=== PATIENT | female | born 1980 | race Caucasian/White ===

== ENCOUNTER 2016-11-08 05:29 | Inpatient (IN) | payer OTHER ==
--- NOTE | 2016-11-05 15:39 | MH ---
cc: KULDEEP COLINDRES M.D. DATE OF ADMISSION: 11/08/2016 DATE OF : 1980 REASON FOR ADMISSION Scheduled elective section for breech presentation on November 08, 2016. HISTORY OF PRESENT ILLNESS The patient is a 36-year-old female whose last menstrual period was February 09, 2016, estimated date of confinement November 15, 2016 confirmed by serial ultrasounds in the first trimester. The patient has been followed routinely and was diagnosed with lewis breech presentation and elected for section electively. PAST MEDICAL HISTORY 1. Chronic hypertension, but she has been normotensive off medication during the whole . 2. History of gastroesophageal reflux. 3. Chronic allergic rhinitis. 4. Advanced maternal age. The patient's course was remarkable for an abnormal one-hour glucose tolerance test which was confirmed normal by a three-hour GTT. The patient's blood type is O+. She is group-B strep negative. MEDICATIONS 1. vitamins. 2. Flonase p.r.n. ALLERGIES No known drug allergies. FAMILY HISTORY Noncontributory. PHYSICAL EXAMINATION GENERAL: The patient is a well-appearing, well-nourished female in no acute distress. VITAL SIGNS: Stable. Blood pressure 124/86. heart tones in the 140s. HEENT: No adenopathy or thyromegaly. LUNGS: Clear in all joshi. CARDIAC: Regular rhythm without murmur, rub or gallop. ABDOMEN: Gravid, full-term, breech presentation palpated, confirmed by ultrasound. EXTREMITIES: Symmetrical. Full range of motion. There is no cyanosis, clubbing or edema. NEUROLOGIC: Grossly intact, nonfocal. ASSESSMENT The patient is 39 weeks intrauterine gestation with lewis breech presentation for elective section. Group-B strep status positive. Advanced maternal age with normal cell-free DNA testing. MD LINDA Hanna/ROSA /1:26 PM /3:30 PM
[~2016-11-08] VITALS: Ht 165.1 cm; Wt 106.1 kg
[~2016-11-08 05:29] MED LIST: Z.0.NO CURRENT MEDS
[2016-11-08 06:00] VITALS: BP 141/95; PULSE 96; RESP 18; TEMP 98.2
[2016-11-08] MEDS ORDERED: CITRIC ACID-SODIUM CITRATE LIQ 30 ML UDC PO SCH (06:00)
[2016-11-08] MEDS ORDERED: ceFAZolin 2 GM PREMIX 50 ML IV SCH (06:00)
[2016-11-08] MEDS ORDERED: LACTATED RINGER'S 1000 ML IV ONE (06:00)
[2016-11-08 06:06] LABS: AUTOMATED NEUTROPHIL # 7.6 TH/MM3 (1.8-7.7); BASOPHIL # 0.1 TH/MM3 (0-0.2); BASOPHIL % 0.8 % (0.0-2.0); EOSINOPHIL # 0.1 TH/MM3 (0-0.4); EOSINOPHIL % 1.1 % (0.0-4.0); HEMATOCRIT 36.4 % (35.0-46.0); HEMO FLAGS DIFF FINAL; LYMPH % 31.7 % (9.0-44.0); MEAN CELL VOLUME 79.8 FL (80.0-100.0); MEAN CORPUSCULAR HEMOGLOBIN 27.2 PG (27.0-34.0); MEAN CORPUSCULAR HGB CONC 34.1 % (32.0-36.0); MONO % 5.5 % (0.0-8.0); NEUT % 60.9 % (16.0-70.0); PLATELET COUNT 128 TH/MM3 (150-450); RED BLOOD COUNT 4.56 MIL/MM3 (4.00-5.30); RED CELL DISTRIBUTION WIDTH 13.7 % (11.6-17.2); WHITE BLOOD COUNT 12.5 TH/MM3 (4.0-11.0)
[2016-11-08] MEDS ORDERED: PRENCAP10 PO (06:12)
[2016-11-08] MEDS ORDERED: CHOL1CAP14 PO (06:13)
[2016-11-08] MEDS ORDERED: PANT20 PO (06:13)
[2016-11-08] MEDS ORDERED: XYZA5TAB2 PO (06:14)
[2016-11-08] MEDS ORDERED: [UNRECOGNIZED DRUG - CODE] TOPICAL (06:15)
[2016-11-08 06:54] LABS: BACTERIA, URINE MOD /hpf; BLOOD, URINE NEG (NEG); GLUCOSE,URINE TRACE mg/dL (NEG); KETONE, URINE 10 mg/dL (NEG); MUCUS URINE FEW /lpf (OCC); NITRITE,URINE NEG (NEG); SQUAMOUS EPITHELIAL CELL URINE 22 /hpf (0-5); TRANSITIONAL EPI CELLS, URINE <1 /hpf; URINE COLOR YELLOW (YELLW/STRAW)
[2016-11-08 06:55] LABS: COMMENT (UR) CULTURE INDICATED; CULTURE IF INDICATED CULTURE INDICATED
[2016-11-08 06:58] VITALS: BP 148/100; PULSE 93
[2016-11-08] MEDS ORDERED: OXYTOCIN 10 UNIT/ML AMP ONE (07:14)
[2016-11-08] MEDS ORDERED: ONDANSETRON HCL 4 MG/2 ML VIAL IV PUSH ONE (07:45)
--- NOTE | 2016-11-08 08:22 | PD.OB.DELI ---
Procedure Note Section Procedure Performed by Osiel Garcia Procedure: Primary Low Transverse Sec Indication for delivery: malposition Informed consent obtained: For anesthesia, For procedure Confirmed correct: Patient, Procedure, Site, Time-out taken Anesthesia: Spinal Medication prior to procedure: As documented in eMAR Monitoring during procedure: Blood pressure monitoring, monitor worker, doppler, Pulse oximetry Urinary catheter: Inserted using sterile technique, To dependent drainage Sterile preparation: Duraprep, In usual fashion Position: Supine with wedge to right side, Supine with safety belt applied Operative Features Skin Incision: Pfannenstiel Uterine Incision: Low transverse w/knife / scissors Membranes Ruptured: Artificially Presentation: Breech Delivery of infant: Uneventful Infant: Female One Minute : 6 Five Minute : 9 Weight: 7/11 Status of : Viable, Cord blood, Umbilical cord, Nursery present Placenta delivered: Intact Medications: Antibiotics, Oxytocin Estimated blood loss: 650cc Procedure tolerated: Well Maternal Condition: Stable Condition: Stable Osiel Garcia MD November 08, 2016 08:22
--- NOTE | 2016-11-08 08:25 | HHI.DS ---
Admission Date November 08, 2016 at 05:29 Admitting Diagnosis Diagnosis: : Female Pt Condition on Discharge: Good Discharge Disposition: Discharge Home Discharge Instructions Diet Instructions: As Tolerated, No Restrictions Activities You Can Perform: Shower Only-No Bath Activities to Avoid: Prolonged Standing, Strenuous Activity, Driving, Sexual Activity Osiel Garcia MD November 08, 2016 08:25
[2016-11-08] MEDS ORDERED: MORPHINE SULFATE PF 5 MG/10 ML VIAL ONE (08:27)
[2016-11-08] MEDS ORDERED: ACETAMINOPHEN 1000 MG/100 ML VIAL IV ONE ×2 (08:30→08:58)
[2016-11-08] MEDS ORDERED: ONDANSETRON HCL 4 MG/2 ML VIAL IV PUSH PRN (08:30)
[2016-11-08] MEDS ORDERED: KETOROLAC TROMETHAMINE 60 MG/2 ML (IM) VIAL IM PRN (08:30)
[2016-11-08] MEDS ORDERED: OXYTOCIN 30 UNITS-500ML PREMIX 500 ML IV ONE (08:30)
[2016-11-08] MEDS ORDERED: SODIUM CHLORIDE 0.9% FLUSH 10 ML FLUSH IV FLUSH PRN (08:30)
[2016-11-08] MEDS ORDERED: SIMETHICONE 80 MG CHEWABLE TAB PO PRN (08:30)
--- NOTE | 2016-11-08 08:45 | MP ---
cc: OSIEL COLINDRES M.D. DATE OF SURGERY 11/08/2016 PREOPERATIVE DIAGNOSIS Term intrauterine , breech presentation. PROCEDURE Primary low transverse section, breech extraction. Delivery of female . POSTOPERATIVE DIAGNOSIS Term intrauterine , breech presentation. SURGEON MD Jose ANESTHESIA Spinal. ESTIMATED BLOOD LOSS 650 cc. DRAINS Awad to gravity. OPERATIVE FINDINGS Adryan breech presentation right sacrum transverse. The baby weighed 7 pounds, 11 ounces. Apgars were 6 at one minute and 9 at five minutes. INDICATIONS FOR PROCEDURE Patient with persistent breech presentation, elected for section. The patient received Ancef 2 grams prophylactically. She was Group B strep negative. PROCEDURE DESCRIPTION The patient was taken to the operating room in stable condition, underwent spinal anesthetic with excellent results. She was prepped and draped. A Awad was inserted by sterile technique. She had sequentials placed on the lower extremities for VTE prophylaxis. After she was prepped and draped, time-out was conducted, agreed to by all present in the room. The patient had excellent pain management. A Pfannenstiel incision was utilized, taking the incision through the skin and the subcutaneous layer down to the fascia which was identified cleanly and then opened laterally by sharp dissection, it away from the rectus muscle. The rectus muscle was in the midline sharply identifying the peritoneum, opening the peritoneum carefully and then extending the incision. Bladder blade was placed over the pubic symphysis. Transverse incision was made in the lower uterine segment, pushing the peritoneum away and under the bladder flap. Clear fluid was noted. The incision was extended bluntly and then manipulation of the presenting part was carefully brought through the incision and the was delivered by breech extraction without complication. The was delivered on the operative field. The cord was doubly clamped and cut and the was taken by the nursery staff present. Cord samples obtained for typing. A cord segment was set aside separately for the event of cord gas if necessary. The placenta was removed intact with trailing membranes and sent for donation. The uterus was explored. There was no retained tissue. Hemostasis was controlled. The uterus was closed with a double layer first with a running locking suture of 0 Monocryl, followed by a second imbricating suture of 0 Monocryl with good result. The pelvis was irrigated. No active bleeding was noted. No hematoma. All free blood and clot was removed. Palpation and visualization of the adnexa were normal. A full count was made and correct. The peritoneum was then closed with a running suture of 2-0 Monocryl. The muscle belly was reapproximated with a simple loose interrupted suture of 2-0 Monocryl and then the fascia was closed with 0 Vicryl in a simple running fashion with good result. The subcutaneous layer was irrigated, observed and dried. No active bleeding was noted. The space was reapproximated with a subcuticular suture of 2-0 Monocryl, followed by zaire on the skin for reapproximation. Dressing was applied. The final count was correct. The patient was stable. She was taken to recovery room on room air. The was doing well in the nursery. Osiel Colindres MD SJPb/SSB /8:31 AM /8:38 AM
[2016-11-08] MEDS: LACTATED RINGER'S 1000 ML IV SCH ×2 (08:57→15:10)
[2016-11-08] MEDS ORDERED: OXYTOCIN 30 UNITS-500ML PREMIX 500 ML ONE (08:58)
[2016-11-08] MEDS: SODIUM CHLORIDE 0.9% FLUSH 10 ML FLUSH IV FLUSH SCH (09:00)
[2016-11-08 09:45] VITALS: BP 133/89; PULSE 71; RESP 20; TEMP 98.1
[2016-11-08] MEDS ORDERED: EPIDURAL-NALOXONE HCL 0.4 MG/ML AMP IV PRN (10:00)
[2016-11-08] MEDS ORDERED: EPIDURAL-DIPHENHYDRAMINE HCL 50 MG/ML VIAL IV PUSH PRN (10:00)
[2016-11-08] MEDS ORDERED: EPIDURAL-NO SYSTEMIC NARCOTICS PRN (10:00)
[2016-11-08] MEDS ORDERED: EPIDURAL-DO NOT ADMINISTER ANTICOAGULANTS PRN (10:00)
[2016-11-08 12:13] VITALS: BP 146/96; PULSE 79; RESP 20; TEMP 98.1
[2016-11-08] MEDS ORDERED: LACTATED RINGER'S 1000 ML INJ 1,000 ML IV SCH (13:22)
[2016-11-08] MEDS: IBUPROFEN 600 MG TAB PO PRN ×2 (16:01→21:45)
[2016-11-08] MEDS: oxyCODONE/ACETAMINOPHEN 5 MG/325 MG TAB PO PRN ×3 (16:01→21:45)
[2016-11-08] MEDS: EPIDURAL-DIPHENHYDRAMINE HCL 50 MG CAP PO PRN ×2 (16:09→21:50)
[2016-11-08 17:35] VITALS: BP 150/97; PULSE 72; RESP 22; TEMP 98.1
[2016-11-08] MEDS ORDERED: OXYTOCIN 30 UNITS-500ML PREMIX 500 ML IV PRN (18:30)
[2016-11-09] VITALS: BP 127/91; PULSE 72; RESP 18; TEMP 98.2; O2SAT 98
[2016-11-09] MEDS: IBUPROFEN 600 MG TAB PO PRN ×3 (03:50→18:20)
[2016-11-09] MEDS: oxyCODONE/ACETAMINOPHEN 5 MG/325 MG TAB PO PRN ×5 (03:51→22:08)
[2016-11-09 04:00] VITALS: BP 116/87; PULSE 80; RESP 18; TEMP 98.4
[2016-11-09 05:50] LABS: AUTOMATED NEUTROPHIL # 6.8 TH/MM3 (1.8-7.7); BASOPHIL % 0.3 % (0.0-2.0); EOSINOPHIL # 0.1 TH/MM3 (0-0.4); EOSINOPHIL % 1.1 % (0.0-4.0); HEMATOCRIT 36.1 % (35.0-46.0); HEMO FLAGS DIFF FINAL; LYMPH % 34.5 % (9.0-44.0); MEAN CELL VOLUME 81.2 FL (80.0-100.0); MEAN CORPUSCULAR HEMOGLOBIN 26.6 PG (27.0-34.0); MEAN CORPUSCULAR HGB CONC 32.8 % (32.0-36.0); MONO % 5.9 % (0.0-8.0); NEUT % 58.2 % (16.0-70.0); PLATELET COUNT 113 TH/MM3 (150-450); RED BLOOD COUNT 4.44 MIL/MM3 (4.00-5.30); RED CELL DISTRIBUTION WIDTH 14.2 % (11.6-17.2); WHITE BLOOD COUNT 11.7 TH/MM3 (4.0-11.0)
--- NOTE | 2016-11-09 07:45 | HHI.OB ---
Subjective Post Operative Day: 1 Remarks distraught about difficulty with latching on and fear of NICU if drops 10% of weight encouraged to be calm and not freak if supplement recommended Objective Vitals/I&O Vital Signs Date Time Temp Pulse Resp B/P Pulse Ox O2 Delivery O2 Flow Rate FiO2 11/09/16 04:50 18 11/09/16 04:50 18 11/09/16 04:00 98.4 80 18 116/87 11/09/16 00:00 98.2 72 18 127/91 98 11/08/16 17:35 150/97 11/08/16 17:35 98.1 72 22 11/08/16 12:13 98.1 79 20 146/96 11/08/16 09:45 98.1 71 20 133/89 Result Diagram: 11/09/16 0528 Objective Remarks GENERAL: Well-nourished, well-developed patient. CARDIOVASCULAR: Regular rate and rhythm without murmurs, gallops, or rubs. RESPIRATORY: Breath sounds equal bilaterally. No accessory muscle use. ABDOMEN/GI: Abdomen soft, non-tender, bowel sounds present. bandage: Clean, dry and intact. Fundus: Firm, non-tender at umbilicus. GENITOURINARY: Light to moderate bleeding. EXTREMITIES: No cyanosis or edema, non-tender, without signs of DVT. Medications and IVs Current Medications Medications (Trade) Dose Ordered Sig/Kika Route Start Time Stop Time Status Last Admin Lactated Ringer's 1,000 ml @ 150 mls/hr Q6H40M IV 11/08/16 06:00 11/08/16 08:57 (Lr 1000 ml Inj) 1,000 ml @ 100 mls/hr Q10H IV 11/08/16 13:22 11/09/16 09:21 11/08/16 15:09 (NS Flush) 2 ml BID IV FLUSH 11/08/16 09:00 (NS Flush) 2 ml UNSCH PRN IV FLUSH 11/08/16 08:30 (Mylicon Chew) 80 mg QID PRN PO 11/08/16 08:30 (Motrin) 600 mg Q6H PRN PO 11/08/16 08:30 11/09/16 03:50 (Toradol Inj) 30 mg Q6H PRN IM 11/08/16 08:30 11/09/16 08:29 11/08/16 10:05 (Percocet 5-325 Mg) 1 tab Q4H PRN PO 11/08/16 08:30 11/08/16 17:33 (Percocet 5-325 Mg) 2 tab Q4H PRN PO 11/08/16 08:30 11/09/16 03:51 (Jaja-Colace) 2 tab Q12H PRN PO 11/08/16 08:30 (M-M-R Ii Inj) 0.5 ml ONCE ONCE SQ 11/09/16 16:00 11/09/16 16:01 (Boostrix Inj) 0.5 ml ONCE ONCE IM 11/09/16 16:00 11/09/16 16:01 (Zofran Inj) 4 mg Q6H PRN IV PUSH 11/08/16 08:30 Miscellaneous Information NO SYSTEMIC NARCOTICS TO BE GIVEN FO... UNSCH PRN .XX 11/08/16 10:00 11/09/16 09:59 (Narcan Inj) 0.4 mg UNSCH PRN IV 11/08/16 10:00 11/09/16 09:59 (Benadryl Inj) 25 mg Q6H PRN IV PUSH 11/08/16 10:00 11/09/16 09:59 (Benadryl) 50 mg Q6H PRN PO 11/08/16 10:00 11/09/16 09:59 11/08/16 21:50 Miscellaneous Information ALL NURSING DEPARTMENTS UNSCH PRN .XX 11/08/16 10:00 11/09/16 09:59 (Protonix) 40 mg DAILY PO 11/09/16 09:00 Assessment/Plan Assessment and Plan s/p section for breech desires to nurse but stressed reassured and should do well POD 1 Vanda Yu MD November 09, 2016 07:45
[2016-11-09 08:00] VITALS: BP 141/98; PULSE 85; RESP 16; TEMP 97.8
[2016-11-09] MEDS: PANTOPRAZOLE SOD 40 MG DELAYED RELEASE TAB PO SCH (09:22)
[2016-11-09] MEDS ORDERED: DIPHTH/TETANUS/ACEL PERTUSSIS (BOOSTER) 0.5 ML VIAL/PFS IM ONE (16:00)
[2016-11-09] MEDS ORDERED: MEASLES, MUMPS, RUBELLA VACCINE 0.5 ML VIAL SQ ONE (16:00)
[2016-11-09 21:00] VITALS: BP 149/96; PULSE 83; RESP 18; TEMP 98.1
[2016-11-09] MEDS: SODIUM CHLORIDE 0.9% FLUSH 10 ML FLUSH IV FLUSH SCH (21:00)
[2016-11-09] MEDS: LACTATED RINGER'S 1000 ML IV SCH (22:00)
[2016-11-10] MEDS: IBUPROFEN 600 MG TAB PO PRN ×4 (01:48→22:15)
[2016-11-10] MEDS: oxyCODONE/ACETAMINOPHEN 5 MG/325 MG TAB PO PRN ×5 (02:10→20:01)
[2016-11-10 07:45] VITALS: BP 158/96; PULSE 84; RESP 18; TEMP 98.7
[2016-11-10] MEDS: DOCUSATE SODIUM 50 MG/SENNA 8.6 MG TAB PO PRN (07:51)
[2016-11-10] MEDS: PANTOPRAZOLE SOD 40 MG DELAYED RELEASE TAB PO SCH (09:44)
--- NOTE | 2016-11-10 10:54 | HHI.OB ---
Subjective Post Operative Day: 2 Remarks POD#2; Stable Objective Vitals/I&O Vital Signs Date Time Temp Pulse Resp B/P Pulse Ox O2 Delivery O2 Flow Rate FiO2 11/10/16 07:45 98.7 11/10/16 07:45 84 18 158/96 11/10/16 02:48 20 11/10/16 02:48 20 11/09/16 21:00 98.1 83 18 149/96 Result Diagram: 11/09/16 0528 Objective Remarks GENERAL: Well-nourished, well-developed patient. CARDIOVASCULAR: Regular rate and rhythm without murmurs, gallops, or rubs. RESPIRATORY: Breath sounds equal bilaterally. No accessory muscle use. ABDOMEN/GI: Abdomen soft, non-tender, bowel sounds present. bandage: Clean, dry and intact. Fundus: Firm, non-tender at umbilicus. GENITOURINARY: Light to moderate bleeding. EXTREMITIES: No cyanosis or edema, non-tender, without signs of DVT. Medications and IVs Current Medications Medications (Trade) Dose Ordered Sig/Kika Route Start Time Stop Time Status Last Admin (Lr 1000 ml Inj) 1,000 ml @ 150 mls/hr Q6H40M IV 11/08/16 06:00 11/08/16 08:57 (NS Flush) 2 ml BID IV FLUSH 11/08/16 09:00 (NS Flush) 2 ml UNSCH PRN IV FLUSH 11/08/16 08:30 (Mylicon Chew) 80 mg QID PRN PO 11/08/16 08:30 (Motrin) 600 mg Q6H PRN PO 11/08/16 08:30 11/10/16 07:51 (Percocet 5-325 Mg) 1 tab Q4H PRN PO 11/08/16 08:30 11/08/16 17:33 (Percocet 5-325 Mg) 2 tab Q4H PRN PO 11/08/16 08:30 11/10/16 06:37 (Jaja-Colace) 2 tab Q12H PRN PO 11/08/16 08:30 11/10/16 07:51 (Zofran Inj) 4 mg Q6H PRN IV PUSH 11/08/16 08:30 (Protonix) 40 mg DAILY PO 11/09/16 09:00 11/10/16 09:44 Assessment/Plan Assessment and Plan POD#2; Stable, plan discharge for tomorrow, thur. Discharge Planning Routine for tomorrow, POD#3 Osiel Garcia MD November 10, 2016 10:54
[2016-11-10] MEDS ORDERED: LABE100T2 PO (11:13)
[2016-11-10] MEDS: LABETALOL HCL 100 MG TAB PO SCH ×2 (11:26→22:15)
[2016-11-10 15:29] VITALS: BP 139/87; PULSE 75; RESP 18; TEMP 97.6
[2016-11-11] MEDS: DOCUSATE SODIUM 50 MG/SENNA 8.6 MG TAB PO PRN (01:16)
[2016-11-11] MEDS: oxyCODONE/ACETAMINOPHEN 5 MG/325 MG TAB PO PRN ×4 (01:17→12:29)
[2016-11-11] MEDS: IBUPROFEN 600 MG TAB PO PRN ×2 (04:39→10:39)
[2016-11-11] MEDS: PANTOPRAZOLE SOD 40 MG DELAYED RELEASE TAB PO SCH (07:59)
[2016-11-11] MEDS: LABETALOL HCL 100 MG TAB PO SCH (07:59)
--- NOTE | 2016-11-11 12:46 | HHI.OB ---
Subjective Post Operative Day: 3 Remarks Sitting up with daughter Upset about possible delay in infant's discharge due to bilirubin Objective Vitals/I&O Vital Signs Date Time Temp Pulse Resp B/P Pulse Ox O2 Delivery O2 Flow Rate FiO2 11/10/16 15:29 97.6 75 18 139/87 Result Diagram: 11/09/16 0528 Objective Remarks GENERAL: Well-nourished, well-developed patient. CARDIOVASCULAR: Regular rate and rhythm without murmurs, gallops, or rubs. RESPIRATORY: Breath sounds equal bilaterally. No accessory muscle use. ABDOMEN/GI: Abdomen soft, non-tender, bowel sounds present. bandage: Clean, dry and intact. Fundus: Firm, non-tender at umbilicus. GENITOURINARY: Light to moderate bleeding. EXTREMITIES: No cyanosis or edema, non-tender, without signs of DVT. Medications and IVs Current Medications Medications (Trade) Dose Ordered Sig/Kika Route Start Time Stop Time Status Last Admin (Lr 1000 ml Inj) 1,000 ml @ 150 mls/hr Q6H40M IV 11/08/16 06:00 11/08/16 08:57 (NS Flush) 2 ml BID IV FLUSH 11/08/16 09:00 (NS Flush) 2 ml UNSCH PRN IV FLUSH 11/08/16 08:30 (Mylicon Chew) 80 mg QID PRN PO 11/08/16 08:30 (Motrin) 600 mg Q6H PRN PO 11/08/16 08:30 11/11/16 10:39 (Percocet 5-325 Mg) 1 tab Q4H PRN PO 11/08/16 08:30 11/11/16 12:29 (Percocet 5-325 Mg) 2 tab Q4H PRN PO 11/08/16 08:30 11/11/16 07:59 (Jaja-Colace) 2 tab Q12H PRN PO 11/08/16 08:30 11/11/16 01:16 (Zofran Inj) 4 mg Q6H PRN IV PUSH 11/08/16 08:30 (Protonix) 40 mg DAILY PO 11/09/16 09:00 11/11/16 07:59 (Trandate) 100 mg Q12HR PO 11/10/16 11:15 11/11/16 07:59 Assessment/Plan Assessment and Plan POD 3 needs zaire out, asking us to postpone a few hours while holding will discharge and look at stay close Discharge Planning Routine for tomorrow, POD#3 Vanda Yu MD November 11, 2016 12:46
[2016-11-11] MEDS ORDERED: OXYC1TAB63 PO (12:47)
== END 2016-11-11 15:39 | disposition home or self-care (01) | DRG 766 ==
LOC: H2EB 05:29 → H1EA 09:09
PROVIDERS: ADMIT Obstetrics & Gynecology; ATTEND Obstetrics & Gynecology
PROC: 10D00Z1 Extraction of Products of Conception, Low, Open Approach (ICD-10-PCS; principal; 2016-11-08)
DX: O32.1XX0 Maternal care for breech presentation, not applicable or unspecified (principal); O10.93 Unspecified pre-existing hypertension complicating the puerperium; O09.513 Supervision of elderly primigravida, third trimester; Z3A.39 39 weeks gestation of pregnancy; Z37.0 Single live birth
CPT/HCPCS: 59025; 76815; 81001; 85025; 86850; 86900; 86901; 87086; J0131; J0690; J1885; J2274; J2405; J2590; J7120; Q0163